=== PATIENT | female | born 1970 | race Two or more races ===

== ENCOUNTER 2018-06-22 11:38 | Emergency (ER) | payer SELFPAY ==
[~2018-06-22] VITALS: Ht 157.5 cm; Wt 79.4 kg
[2018-06-22 12:08] VITALS: BP 124/60
== END 2018-06-22 13:45 | disposition home or self-care (01) ==
LOC: ER 11:38
DX: S92.352A Displaced fracture of fifth metatarsal bone, left foot, initial encounter for closed fracture (principal); X50.0XXA Overexertion from strenuous movement or load, initial encounter; Y93.89 Activity, other specified; Y99.8 Other external cause status; Y92.89 Other specified places as the place of occurrence of the external cause
CPT/HCPCS: 29515